=== PATIENT | male | born 1960 | race Caucasian/White ===

== ENCOUNTER 2024-10-15 01:03 | Day surgery (SDC) | payer MEDICARE, OTHER, SELFPAY ==
[2024-10-07 11:18] VITALS: BMI 36.8
[2024-10-15 07:20] VITALS: BP 155/88; PULSE 64; RESP 18; TEMP 36.1; O2SAT 99; BMI 36.2
--- NOTE | 2024-10-15 07:25 | WPDANESEPPF ---
Anes - Initial Pre Proc Eval Procedure: Operation Date: 10/15/24 08:30 Proposed Procedures p Screening Colonoscopy - Yazan Suárez DO Date/Time: 10/15/24 07:25 Surgeon: Yazan Suárez DO Pre Op Diagnosis: Screening for malignant neoplasm of colon Patient Data Age: 64 Gender: M Height: 1.83 m Weight: 121.3 kg Last Vital Signs Temp 36.1 C L 10/15/24 07:20 Pulse 64 10/15/24 07:20 Resp 18 10/15/24 07:20 BP 155/88 H 10/15/24 07:20 Pulse Ox 99 10/15/24 07:20 O2 Del Method Room Air 10/15/24 07:20 Allergies Allergy/AdvReac Type Severity Reaction Status Date / Time No Known Allergies Allergy Verified 10/15/24 07:19 Home Medications ?Medication ?Instructions ?Recorded ?Confirmed ?Type amlodipine 5 mg tablet (Norvasc) 5 mg PO DAILY 09/18/24 10/15/24 History hydrochlorothiazide 12.5 mg capsule 12.5 mg PO DAILY 09/18/24 10/15/24 History inclisiran 284 mg/1.5 mL 284 mg subcut [id number] 09/18/24 10/07/24 History subcutaneous syringe (Leqvio) fluticasone propionate 50 1 spray intranasal DAILY 09/27/24 10/15/24 History mcg/actuation nasal spray,suspension (Flonase Allergy Relief) Patient hx anesthesia problems: none Family hx anesthesia problems: none Results Review: All pre-operative results and documents have been reviewed as part of the pre-operative evaluation. [facility] Past Medical History Medical History (Updated 10/15/24 @ 07:25 by Ortiz Feliz MD) Benign prostatic hyperplasia (BPH) with post-void dribbling Surgical History Surgical History H/O sinus surgery Family History Family History Father , 56 Acute myocardial infarction Cerebrovascular accident Tobacco abuse Mother Heart disease Sibling No problems noted. 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 Informed Consent: The patient's anesthetic plan and its attendant risks and benefits were discussed with the patient/family/POA. Questions were solicited and answers provided to the satisfaction of the patient/family/POA.
[2024-10-15] MEDS: LACTATED RINGERS 1,000 ML 150 ML IV CONT (07:33)
--- NOTE | 2024-10-15 08:33 | PM.IMHP ---
H&P: HPI History of Present Illness Date/Time: 10/15/24 08:33 Chief Complaint: Screening for CRC Narrative: 64 yo man presents for colonoscopy. Last colonoscopy was 10 years ago and was normal. Denies hematochezia or melena. Has fam hx of colon polyps in his mother. Review of Systems Review of Systems: All systems reviewed & are unremarkable except as noted in HPI and below Constitutional: Constitutional: Denies chills, Denies fever(s), Denies headache(s) and Denies weight loss Eyes: Eyes: Denies change in vision ENT: Denies dizziness, Denies headache(s), Denies neck mass and Denies throat swelling Cardiovascular: Cardiovascular: Denies chest pain, Denies lightheadedness and Denies dyspnea Respiratory: Respiratory: Denies cough, Denies dyspnea and Denies wheezing Gastrointestinal: Gastrointestinal: Denies abdominal pain, Denies change in bowel habits, Denies nausea and Denies vomiting Genitourinary: Genitourinary: Denies hematuria and Denies dysuria Musculoskeletal: Musculoskeletal: Reports as per HPI Integumentary/Breasts: Skin/Breast: Reports as per HPI Neurologic: Denies dizziness and Denies headache(s) Allergic/Immunologic: Allergic/Immunologic: Denies throat swelling and Denies wheezing [facility] [place] Past Medical History Medical History (Updated 10/15/24 @ 08:35 by Yazan Suárez DO) Benign prostatic hyperplasia (BPH) with post-void dribbling Surgical History Surgical History H/O sinus surgery Family History Family History Father , 56 Acute myocardial infarction Cerebrovascular accident Tobacco abuse Mother Heart disease Sibling No problems noted. 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[employer] Gender identity (if verbalized by the patient): Male Spiritual care concerns: No Meds Home Medications and Allergies Home Medications ?Medication ?Instructions ?Recorded ?Confirmed ?Type amlodipine 5 mg tablet (Norvasc) 5 mg PO DAILY 09/18/24 10/15/24 History hydrochlorothiazide 12.5 mg capsule 12.5 mg PO DAILY 09/18/24 10/15/24 History inclisiran 284 mg/1.5 mL 284 mg subcut [id number] 09/18/24 10/07/24 History subcutaneous syringe (Leqvio) fluticasone propionate 50 1 spray intranasal DAILY 09/27/24 10/15/24 History mcg/actuation nasal spray,suspension (Flonase Allergy Relief) Allergies Allergy/AdvReac Type Severity Reaction Status Date / Time No Known Allergies Allergy Verified 10/15/24 07:19 Vital Signs Vital Signs - 24 hr 10/15/24 07:20 Temperature 97 F L Pulse Rate 64 Respiratory Rate 18 Blood Pressure 155/88 H Pulse Oximetry 99 Oxygen Delivery Room Air Exam Const: General: no acute distress and alert Orientation/consciousness: patient oriented x3 HENMT: Head: normocephalic and atraumatic Ears: hearing grossly normal bilaterally Face/Nose/Sinus: Normal nares present Mouth: Yes Normal oral and palatal mucosa present Eyes: Periorbital: periorbital findings normal Sclera: sclerae normal EOM: EOMs intact bilaterally Neck: Neck: normal visual inspection, no lymphadenopathy and trachea midline Chest: Chest palpation & inspection: normal inspection of the chest Resp: Effort & Inspection: normal respiratory effort Auscultation: clear to auscultation bilaterally Cardio: Jugular venous distension: no JVD Rate: regular rate Rhythm: regular rhythm Heart sounds: S1 normal heart sound present and S2 normal heart sound present Peripheral pulses: Peripheral pulses 2+ throughout GI: Inspection: normal to inspection GI Palp: Yes Soft to palpation, No Tenderness to palpation present (GI), No Guarding due to palpation present (GI) and No Rebound tenderness present Percussion: Yes normal to percussion Auscultation: normal bowel sounds : General: Yes no CVA tenderness Back/Spine/Pelvis: Back: no CVA tenderness Neuro: General: patient oriented x3, no focal motor deficits and CN's II-XI intact bilaterally Cognition (Neuro): normal cognition Speech: normal speech Motor exam (neuro): 5/5 motor strength present throughout Extrem: General: capillary refill normal and no clubbing, cyanosis or edema Assessment and Plan Assessment and plan (1) Screening for colorectal cancer: Code(s): Z12.11 - Encounter for screening for malignant neoplasm of colon; Z12.12 - Encounter for screening for malignant neoplasm of rectum Status: Acute Assessment and Plan: I have recommended colonoscopy. I have discussed the procedure, risks, benefits, and alternatives. Questions were answered. Patient is agreeable to proceed.
[2024-10-15 08:59] VITALS: BP 108/77; PULSE 64; RESP 17; O2SAT 98
[2024-10-15 09:09] VITALS: BP 118/78; PULSE 60; RESP 17; O2SAT 98
[2024-10-15 09:19] VITALS: BP 125/83; PULSE 62; RESP 20; O2SAT 98
== END 2024-10-15 09:31 | disposition home or self-care (01) ==
PROVIDERS: PCP Internal Medicine; Visit Provider Surgery
PROC: 0DJD8ZZ Inspection of Lower Intestinal Tract, Via Natural or Artificial Opening Endoscopic (ICD-10-PCS; CPT 45378; principal; 2024-10-15 08:30)
DX: Z12.11 Encounter for screening for malignant neoplasm of colon (principal); K57.30 Diverticulosis of large intestine without perforation or abscess without bleeding; N40.1 Benign prostatic hyperplasia with lower urinary tract symptoms; E66.9 Obesity, unspecified; Z68.36 Body mass index [BMI] 36.0-36.9, adult; Z98.890 Other specified postprocedural states; Z83.719 Family history of colon polyps, unspecified; Z82.49 Family history of ischemic heart disease and other diseases of the circulatory system
CPT/HCPCS: G0105; J2003; J2704; J7120

== ENCOUNTER 2025-01-10 07:49 | Outpatient (CLI) | payer MEDICARE, OTHER, SELFPAY ==
--- NOTE | ~2025-01-10 | US_ITS ---
EXAMINATION: US aorta DATE: 01/10/2025 13:48 CDT INDICATION: Family history of ischemic heart disease and aortic aneurysm TECHNIQUE: Grayscale, color Doppler, and pulsed Doppler images of the aorta and common iliac arteries were obtained. COMPARISON: None. FINDINGS: The proximal aorta measures 2.5 x 2.9 cm The mid aorta measures 2.8 x 2.8 cm The distal aorta measures 2.2 x 2.5 cm The right common internal iliac artery measures 1.6 x 1.5cm. The left common iliac artery measures 1.8 x 1.9 cm. IMPRESSION: 1. No aneurysmal dilatation of the abdominal aorta or bilateral common iliac arteries, as detailed ab ove. Reviewed, dictated and finalized at location A. IMPRESSION: 1. No aneurysmal dilatation of the abdominal aorta or bilateral common iliac ar teries, as detailed above.
--- OUTSIDE RECORDS SUMMARY | 2025-01-10 07:51 | XMS_ITS | Encounter Summary ---
Author Organization [facility] Healthcare Address [address] [place] [id number] Care Team Providers Care Agricultural Engineering Technician Name Role Phone Joe Barnes DO Primary Care Provider Mehul Paula DO Primary Care Provider Encounter Details Date Type Department Care Team (Late st Contact Info) Description 06/03/2024 Telephone [facility] Cardiac Adjunct English Instructor [address] [place] [address] Rasta Bullock MD [address] [place] [address] [address] Social History Tobacco Use Types Packs/Day Years Used Date Smoking Tobacco: Never Smokeless Tobacco: Never Personal Safety Answer Date Recorded Have you ever been in or are you currently in a harmful physical or emotional relationship or is someone making you feel afraid or unsafe? 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
--- OUTSIDE RECORDS SUMMARY | 2025-01-10 07:51 | XMS_ITS | Encounter Summary ---
Author Organization [facility] Healthcare Address [address] [place] [id number] Care Team Providers Care Survey Rodman Name Role Phone Joe Barnes DO Primary Care Provider [phone] Mehul Paula DO Primary Care Provider Encounter Details Date Type Department Care Team (Late st Contact Info) Description 04/30/[address] [facility] Cardiac Client Support Consultant [address] [place] [address] Rasta Bullock MD [address] [place] [address] [address] Social History Tobacco Use Types Packs/Day Years Used Date Smoking Tobacco: Never Smokeless Tobacco: Never Personal Safety Answer Date Recorded Getting School Help Needed Not on file 08/05 Sex and Gender Information Value Date Recorded Sex Assigned at Not on file Legal Sex Male 7:16 AM CRITICAL CARE NURSE PRACTITIONER Gender Identity Male 07/31/2024 12:37 PM CRITICAL CARE NURSE PRACTITIONER Sexual Orientation Not on file documented as of this encounter Plan of Treatment Not on file documented as of this encounter Visit Diagnoses Not on filedocumented in this encounter Care Teams Survey Rodman Relationship Specialty Start Date End Date Joe Barnes DO PCP - General Family Medicine 04/22/22 10/02/24 Mehul Paula DO [address] [place] [id number] PCP - General Internal Medicine 10/03/24 documented as of this encounter
--- OUTSIDE RECORDS SUMMARY | 2025-01-10 07:52 | XMS_ITS | Clinical Summary ---
Author Organization [facility] Address [address] [place] [address] Care Team Providers Care Molder Offbearer Name Role Phone Mehul Paula DO Primary Care Provider Allergies Active Allergy Reactions Criticality Noted Date Comments [place]-Vaf-Tpy Reductase Inhibitors Joint pain Low 08/09/2024 Medications amLODIPine (NORVASC) 5 mg tablet Take 1 tablet (5 mg total) by mouth daily 0 Active hydroCHLOROthi azide (MICROZIDE) 12.5 mg capsule 2 Active fluticasone propionate (FLONASE) 50 mcg/actuation nasal sprayIndicatio ns:Dysfunction of both eustachian tubes Administer 2 sprays into each nostril daily 1 each 3 4 Active inclisiran (LEQVIO) 284 mg/1.5 mL syringe Inject under the skin once Active oxyCODONE-acet aminophen (PERCOCET) 5-325 mg per tablet 4 12/17/19 25 Discontinu ed(Therapy completed) simethicone (MYLICON) 80 mg chewable tablet 3 tablets (240 mg total) 5 12/17/19 25 Discontinu ed(Therapy completed) Active Problems Problem Noted Date Diagnosed Date Impacted cerumen of left ear 10/30/2024 Assessment & Plan (10/30/2024 8:21 PM CDT): He did have some wax impacted up against the drum on the left side. That was removed using suction. It could be causing the occasional popping in his left ear. Otherwise I do not find any other problems. He understands. He will follow up if his symptoms worsen. Scalp lesion 10/30/2024 Assessment & Plan (10/30/2024 8:23 PM CDT): He has some slight scaly areas along the right posterior scalp. I do not feel anything such as a subcutaneous lymph node. The scalp lesions involve the skin and appear benign. Could be eczema. I recommended that he continue with his current shampoo. He could consider seeing a clearing tub worker for further evaluation. He understands. Chronic pansinusitis 10/04/2024 Assessment & Plan (10/30/2024 8:20 PM CDT): He had a sinus CT scan done today and I reviewed this with him. It generally shows no significant evidence of sinusitis. Evidence of prior surgery but everything is clear. I recommended no further intervention and he is fine with that. Assessment & Plan (10/04/2024 12:42 PM GOLF CLUB WEIGHTER): He continues to have a lot of underlying sinusitis symptoms and I am recommending that we continue with treatment. I would like to switch his antibiotics however. Going to have him discontinue the doxycycline. I am going to also place him on Ceftin 500 mg twice a day for 2 weeks. Also we would like to have him take another course of steroids even though he just finished that. It is going to be a short course of prednisone. I am also planning on having him follow-up and we will check a sinus CT scan at that time. He will see me in about 4 weeks. Right chronic serous otitis media 10/04/2024 Assessment & Plan (10/30/2024 8:21 PM CDT): His ear feels much better. Feels like he is hearing better. I am recommending no further intervention. Continue with his hearing aid use. Assessment & Plan (10/04/2024 12:43 PM GOLF CLUB WEIGHTER): He has a middle ear effusion on the right side which is affecting his hearing. I recommended a myringotomy. Also talked with him about placing a tube but we will see how things go and resort to that if he develops a middle ear effusion again. He understands. Myringotomy was done today. He noted significant improvement in his hearing. Cervical lymphadenitis 10/04/2024 Assessment & Plan (10/04/2024 12:48 PM GOLF CLUB WEIGHTER): He has what appears to be a small palpable lymph node in the right occipital area. Non pathologic. I am recommending taking a wait and see approach on that. He will let me know if things change significantly. Tinnitus of both ears 08/09/2024 Aortic valve disease 07/25/2024 Other hyperlipidemia 07/25/2024 Family history of ischemic heart disease 024 Nonrheumatic aortic (valve) stenosis 06/06/2024 Sensorineural hearing loss (SNHL) of both ears 1 09/27/2021 Assessment & Plan (10/04/2024 12:41 PM GOLF CLUB WEIGHTER): This appears to be pretty stable when comparing his most recent audiograms. There has a little bit of test variability however. Assessment & Plan (07/31/2022 4:05 PM GOLF CLUB WEIGHTER): I reviewed his hearing test and it shows a mixed loss which is mostly sensorineural. I do think that the conductive component is probably due to middle ear fluid or pressure. We talked about that. I recommended a myringotomy on both sides and he indicated that he would like to pursue that. He has had this done in the past with success. Dysfunction of both eustachian tubes 07/27/2022 Assessment & Plan (09/07/2022 6:32 PM GOLF CLUB WEIGHTER): His ears both look much better. Tympanic membranes are essentially normal. At this point I do not think there is any need for further intervention. I told him that this problem could recur and if so he can always follow-up with me. He understands and is agreeable with that approach. Assessment & Plan (07/27/2022 9:12 AM GOLF CLUB WEIGHTER): I did myringotomies bilaterally and he tolerated that well. Small amount of fluid noted on the right side but the left side was pretty clear. Did note some improvement right away. I recommended keeping his ears dry. I am going to prescribe a steroid pack and follow-up with him in about 6 weeks. Adrenal adenoma, right 09/26/2019 Assessment & Plan (04/27/2023 8:57 AM CDT): 1.8 cm right adrenal nodule detected onCT scan on 07/08/19 [address]able in size on CT scan on 05/23/20 No clinical signs of adrenal dysfunction Work up showed normal urine free cortisol and serum metanephrines in . had normal 1 mg Dexamethasone suppression test on 04/27/21 Normal electrolytes with GFR of 76 on 04/14/22 Plan: We will check 1 mg Dexamethasone suppression test If test is normal then no follow up for adrenal gland is needed. Assessment & Plan (04/27/2022 8:58 AM CDT): 1.8 cm right adrenal nodule detected onCT scan on 07/08/19 [address]able in size on CT scan on 05/23/20 No clinical signs of adrenal dysfunction Work up showed normal urine free cortisol and serum metanephrines in . had normal 1 mg Dexamethasone suppression test on 04/27/21 Normal electrolytes with GFR of 76 on 04/14/22 Plan: We will continue to monitor for adrenal dysfunction Check again in 1 year. Assessment & Plan (04/23/2021 8:49 AM CDT): 1.8 cm right adrenal nodule detected onCT scan on 07/08/19 [address]able in size on CT scan on 05/23/20 No clinical signs of adrenal dysfunction Labs from 2019 showing sodium 140, potassium of 4.3 Cr 1.6 and GFR 41 Calcium 9.0 Work up showed normal urine free cortisol and serum metanephrines in . Plan: We will continue to screen for adrenal dysfunction Check 1 mg Dexamethasone suppression test Check BMP Assessment & Plan (04/14/2020 5:04 PM CDT): 59 years old male, with history of controlled hypertension CT scan on 07/08/19 1.8 cm right adrenal nodule with features suggesting adenoma No clinical signs of adrenal dysfunction Labs from 2019 showing sodium 140, potassium of 4.3 Cr 1.6 and GFR 41 Calcium 9.0 Work up showed normal urine free cortisol and serum metanephrines in . Plan: The diagnosis reviewed with patient We will check BMP Check CT of the adrenal gland to insure stability. Essential hypertension 09/26/2019 Assessment & Plan (04/27/2023 8:56 AM CDT): Controlled with medication - low salt diet - continue medication per PCP Assessment & Plan (04/27/2022 8:56 AM CDT): Controlled with medication - low salt diet - continue medication per PCP Assessment & Plan (04/23/2021 8:50 AM CDT): Controlled with medication - low salt diet - continue medication per PCP Assessment & Plan (04/14/2020 5:06 PM CDT): Controlled with medications Patient reports nocturia not responding to Flomax - nocturia not related to adrenal issue. - check with PCP, he may need evaluation by urology. Encounters Date Type Department Care Team Description 12/16/2024 1:11 PM CDT - 12/16/2024 11:59 PM CDT Hospital Encounter [facility] [address] [place] [address] Family history of ischemic heart disease (Primary Dx); Other hyperlipidemia; Aortic valve disease Discharge Disposition: Discharge to home or self care 10/30/2024 3:00 PM CDT Office Visit [facility] [address] [place] [phone] Adonis Milan MD Chronic pansinusitis (Primary Dx); Right chronic serous otitis media; Impacted cerumen of left ear; Scalp lesion 10/30/2024 Imaging Exam [facility] [address] [place] [phone] Adonis Milan MD Chronic pansinusitis (Primary Dx) from Last 3 Months Surgical History Surgery Date Site/Laterality Comments PROSTATE SURGERY SINUS SURGERY CATARACT EXTRACTION MYRINGOTOMY 07/27/2022 Bilateral MYRINGOTOMY 10/03/2024 Right Medical History Medical History Date Comments Enlarged prostate Hypertension Ear problems HL (hearing loss) Other hyperlipidemia 07/25/2024 Family history of ischemic heart disease 024 Tinnitus Neck mass Bump behind righ t ear Sinusitis Family History Medical History Relation Name Comments Stroke Father No Known Problems Mother Relation Name Status Comments Father Mother Alive Social History Tobacco Use Types Packs/Day Years Used Date Smoking Tobacco: Never Smokeless Tobacco: Never Tobacco Cessation:Counseling Given: Not Answered Personal Safety Answer Date Recorded Have you ever been in or are you currently in a harmful physical or emotional relationship or is someone making you feel afraid or unsafe? Denies 06/06/2024 Sex and Gender Information Value Date Recorded Sex Assigned at Not on file Legal Sex Male 7:16 AM GOLF CLUB WEIGHTER Gender Identity Male 07/31/2024 12:37 PM GOLF CLUB WEIGHTER Sexual Orientation Not on file Obstetrics History Last Filed Vital Signs Vital Sign Reading Time Taken Comments Blood Pressure 140/87 12/16/2024 1:15 PM CDT Pulse 71 12/16/2024 1:15 PM CDT Temperature 36.6 C (97.8 F) 12/16/2024 1:15 PM CDT Respiratory Rate 18 12/16/2024 1:15 PM CDT Oxygen Saturation 100% 12/16/2024 1:15 PM CDT Inhaled Oxygen Concentration - - Weight 122.5 kg (270 lb) 10/30/2024 3:11 PM CDT Height 185.4 cm (6' 1) 10/30/2024 3:11 PM CDT Body Mass Index 35.62 10/30/2024 3:11 PM CDT Plan of Treatment Health Maintenance Due Date Last Done Comments Colon Cancer Screening-Colonoscopy 1959 Depression Screening 1959 Hepatitis C Screening 1959 Prostate Cancer Screening-PSA 1959 Hepatitis B Screening 1977 Pneumococcal vaccine 65+ (1 of 1 - PCV) 2009 Zoster Vaccine (2 of 2) 02/15/2022 12/21/2021 Covid-19 Vaccine (3 - 2023-2 5 season) 2024 10/19/2020, 09/22/2020 Well Visit 65+ 2024 Influenza Vaccine (Season Ended) 2025 06/09/2020, 06/10/2019, 06/10/2019, Additional history exists Fall Risk Assessment 06/06/2025 06/06/2024 DTaP/Tdap/Td Vaccine (2 - Td or Tdap) 12/22/2031 12/21/2021, 06/19/2003, 01/02/1997 Insurance MEDICARE [employer] [facility] MEDICARE FOR LIFE Care Teams Molder Offbearer Relationship Specialty Start Date End Date Mehul Paula DO [address] [facility] [address] [place] [address] PCP - General Internal Medicine 10/03/24
--- OUTSIDE RECORDS SUMMARY | 2025-01-10 07:52 | XMS_ITS | Referral Summary ---
Author Organization [facility] Medical Office Building B Address [address] [place] [address] Care Team Providers Care Health Information Manager Name Role Phone Mehul Paula DO Primary Care Provider [phone] Encounters Date Type Department Care Team Description 12/16/2024 1:11 PM CDT - 12/16/2024 11:59 PM CDT Hospital Encounter [facility] [address] [place] [address] Family history of ischemic heart disease (Primary Dx); Other hyperlipidemia; Aortic valve disease Discharge Disposition: Discharge to home or self care 10/30/2024 Imaging Exam [facility] Otolaryngology [address] [place] [phone] Adonis Milan MD Chronic pansinusitis (Primary Dx) 10/30/2024 3:00 PM CDT Office Visit [facility] Otolaryngology [address] [place] [phone] Adonis Milan MD Chronic pansinusitis (Primary Dx); Right chronic serous otitis media; Impacted cerumen of left ear; Scalp lesion from Last 3 Months Allergies Active Allergy Reactions Criticality Noted Date Comments Uxuzkub-Evt-Yjy Reductase Inhibitors Joint pain Low 08/09/2024 Medications [...] current shampoo. He could consider seeing a transplant immunologist for further evaluation. He understands. Chronic pansinusitis 10/04/2024 Assessment & Plan (10/30/2024 8:20 PM CDT): He had a sinus CT scan done today and I reviewed this with him. It generally shows no significant evidence of sinusitis. Evidence of prior surgery but everything is clear. I recommended no further intervention and he is fine with that. Assessment & Plan (10/04/2024 12:42 PM MARBLE CUTTER OPERATOR): He continues to have a lot of [...] use. Assessment & Plan (10/04/2024 12:43 PM MARBLE CUTTER OPERATOR): He has a middle ear effusion on [...] 10/04/2024 Assessment & Plan (10/04/2024 12:48 PM MARBLE CUTTER OPERATOR): He has what appears to be a [...] 09/27/2021 Assessment & Plan (10/04/2024 12:41 PM MARBLE CUTTER OPERATOR): This appears to be pretty stable when comparing his most recent audiograms. There has a little bit of test variability however. Assessment & Plan (07/31/2022 4:05 PM MARBLE CUTTER OPERATOR): I reviewed his hearing test and it [...] 07/27/2022 Assessment & Plan (09/07/2022 6:32 PM MARBLE CUTTER OPERATOR): His ears both look much better. Tympanic membranes are essentially normal. At this point I do not think there is any need for further intervention. I told him that this problem could recur and if so he can always follow-up with me. He understands and is agreeable with that approach. Assessment & Plan (07/27/2022 9:12 AM MARBLE CUTTER OPERATOR): I did myringotomies bilaterally and he tolerated [...] PCP, he may need evaluation by urology. Social History Tobacco Use Types Packs/Day Years [...] on file Legal Sex Male 7:16 AM MARBLE CUTTER OPERATOR Gender Identity Male 07/31/2024 12:37 PM MARBLE CUTTER OPERATOR Sexual Orientation Not on file Last Filed Vital Signs Vital Sign Reading [...] 10/30/2024 3:11 PM CDT Plan of Treatment [place] [address] MEDICARE [employer] MED[employer] FOR LIFE Care Teams Health Information Manager Relationship Specialty Start Date End Date Mehul Paula DO [address] [facility] [address] [place], [place] [phone] PCP - General Internal Medicine 10/03/24
--- OUTSIDE RECORDS SUMMARY | 2025-01-10 07:52 | XMS_ITS | Data Portability ---
Author Organization [place] - [facility] OFFICE Address [address] [place] [address] Care Team Providers Care Gate Clerk Name Role Phone MIDWAY Primary Care Provider Assessment No assessment recorded. Plan of Treatment Reminders Order Date Submit Date Provider Last Modified By Organization Details Last Modified Time Details Appointments ESTABLISH ED PATIENT DETAILED 2024 10:00A M Joe Dunn i, MD Not available Not available Not available Lab None recorded. Referral None recorded. Procedures None recorded. Surgeries None recorded. Imaging electroca rdiogram 2023 024 [email or web address] Not available 03/27/2024 08:36:26 Medication Orders None recorded. Patient TargetsNo targets recorded. Patient InstructionsNo instructions recorded. Reason for Referral None Reported. Results Created Date Observation Date Name Description Value Unit Range Abnormal Flag Note LastModifiedBy Organization Detail LastModifiedTime 03/12/20 24 01/19/2024 nelli shannonsusi diogr am No observ ation record ed. [email or web address] Not Available 2023 17:56:58 03/12/20 24 01/19/2024 XR, chest , 1 view No observ ation record ed. [email or web address] Not Available 2023 15:46:21 03/26/20 24 03/19/2024 exerc ise stres s test No observ ation record ed. [email or web address] Not Available 2023 09:35:31 04/20/20 24 04/09/2024 US, echoc ardio gram No observ ation record ed. [email or web address] Not Available 2023 04:37:44 07/23/20 24 06/06/2024 US, echoc ardio gram No observ ation record ed. [email or web address] Not Available 2023 17:06:38 07/23/20 24 07/23/2024 nelli fischer diogr am No observ ation record ed. [email or web address] Not Available 2023 17:11:53 Result Notes Documentation Provider Name and Address Organization Details Recorded Time Lipid Panel, Blood : Kelly Fairbanks [facility], [facility] [place] 07/24/2024 15:52:28 Problems Name Problem SNOMED Code Status Onset Date Resolution Date Notes Provider Name and Address Organization Details Recorded Time Chest pain 71249216 Active 2023 [facility] 4 13:11:27 Essential hypertension 97637339 Active 2023 [facility] 4 04:31:00 Family history of coronary arterioscleros is 718351747 Active 2023 [facility] 4 04:31:51 Dyslipidemia 337559883 Active 2023 [facility] 4 04:32:01 Problem Notes None recorded. Procedures Surgical History Date Name Laterality Status Provider Name and Address Organization Details Recorded Time 0 Prostate Surgery completed Kathe Jasimne [facility] 03/12/2024 14:43:22 Imaging Results None recorded. Procedure Notes None recorded. Medical Equipment None Reported. Allergies No known drug allergies Medications Name Sig Start Date Stop Date Status Note LastModified by Organization Details LastModified Time penicillin V potassium 500 mg tablet 04/23 completed Not Available Not Available Not Available amlodipine 5 mg tablet TAKE 1 TABLET BY MOUTH DAILY active Not Available Not Available No t Available sulfamethoxa zole 800 mg-trimethop rim 160 mg tablet TAKE 1 TABLET BY MOUTH TWICE DAILY FOR 7 DAYS 03/12 completed Not Available Not Available Not Available oxycodone-ac etaminophen 5 mg-325 mg tablet TAKE 1 TABLET BY MOUTH EVERY 4 TO 6 HOURS NEEDED FOR PAIN 03/12 completed Not Available Not Available Not Available dexamethason e 1 mg tablet TAKE 1 TABLET BY MOUTH 11 PM THE NIGHT BEFORE LAB TEST 03/12 completed Not Available Not Available Not Available hydrochlorot hiazide 12.5 mg capsule TAKE 1 CAPSULE BY MOUTH DAILY active Not Available Not Available No t Available hydrochlorot hiazide 12.5 mg tablet 03/12 completed Not Available Not Available Not Available Vitals Date Recorded Body height Body mass index (BMI) Body weight Heart rate Oxygen saturation Oxygen saturation in Arterial blood by Pulse oximetry Systolic blood pressure Diastolic blood pressure Provider Name and Address Organization Details Last Updated DateTime 4 182.88 cm 36.9 kg/m2 808476. 56 g 75 /min 96 % 96 % 127 mm[Hg] 75 mm[Hg] Kathe Jasmine [facility] 4 14:48:07 Date Recorded Body height Body mass index (BMI) Body weight Heart rate Oxygen saturation Oxygen saturation in Arterial blood by Pulse oximetry Systolic blood pressure Diastolic blood pressure Provider Name and Address Organization Details Last Updated DateTime 4 182.88 cm 36.9 kg/m2 344572. 12 g 64 /min 97 % 97 % 126 mm[Hg] 81 mm[Hg] Kathe Jasmine [facility] 4 16:58:39 Date Recorded Body height Body mass index (BMI) Body weight Heart rate Oxygen saturation Oxygen saturation in Arterial blood by Pulse oximetry Systolic blood pressure Diastolic blood pressure Provider Name and Address Organization Details Last Updated DateTime 4 182.88 cm 37.8 kg/m2 884787. 12 g 80 /min 92 % 92 % 168 mm[Hg] 82 mm[Hg] Kathe Jasmine [facility] 4 14:21:58 Social History Question Answer Notes LastModified by Organizat ion Details LastModified Time Tobacco Smoking Status Never Smoker Kathe Jasmine [facility] 03/12/2024 14:45:04 What Is Your Relationship Status? esto Information not available 03/10/2024 Sex: Unknown Functional Status None recorded. Mental Status None recorded. Family History Nothing Reported Notes:heat attack -father st roke-aunts/grandmother Medical History Condition Response Hypertension Y Past Encounters Encounter ID Performer Location Encounter Start Date Encounter Closed Date Diagnosis/Indication Diagnosis SNOMED-CT Code Diagnosis ICD10 Code Diagnosis Note [id number] Joe Degroot MD [address] [place] [address] 03/12/2024 13:56:19 03/12/2024 15:22:39 Chest pain 52341543 R07.9 Treadmill Myoview Stress test, has high Caliente Risk score. Has Known CAD, or CAD risk equivalent . To look for any ischemia.O btain echo to evaluate for structural /functiona l disease. Essential hypertension 55420169 I10 Obtain echo to evaluate for structural /functiona l disease. Family his tory of coronary arteriosclerosis 173700661 Z82.49 Needs to keep LDL less than 70, and HDL more than 40. Dyslipidemia 354776980 E 78.5 Needs to keep LDL less than 70, and HDL more than 40Will get fasting lipids for follow up [id number] Joe Degroot MD [place] OFFICE [facility] [place] [id number] 04/23/2024 16:30:03 04/23/2024 17:25:41 Essential hypertension 39895796 I10 Now well controlled Family his tory of coronary arteriosclerosis 038592630 Z82.49 Needs to keep LDL less than 70, and HDL more than 40. Dyslipidemia 556222253 E 78.5 Needs to keep LDL less than 70, and HDL more than 40LDL 135 will consider Leqvio Aortic valve disorder 87 79333 I35.9 With suspected Vegetation , will arrange for HANG [id number] Joe Degroot MD [place] OFFICE [facility] [place] [address] 07/23/2024 14:06:14 07/23/2024 14:43:43 Essential hypertension 22181706 I10 Now well controlled Family his tory of coronary arteriosclerosis 738020029 Z82.49 Needs to keep LDL less than 70, and HDL more than 40. Dyslipidemia 192433211 E 78.5 Needs to keep LDL less than 70, and HDL more than 40LDL 135 will Leqvio Aortic valve disorder 87 85195 I35.9 With suspected Vegetation , HANG was negative Obstructiv e sleep apnea syndrome 16826826 G47.33 May need sleep study Health Concerns Section Related Observation LastModified by Organization Detai ls LastModified Time None Recorded Concern Status LastModified by Organization Details LastModified Time None Recorded Advance Directives Directive None Recorded Payers Insurance Date Sequence Insurance Name Policy Number Policy Wallace Covered Member ID Wallaec Member ID Guarantor Name 2024 2 [facility] () Ronal Orozco [id number] Ronal Orozco 07/22/2024 1 MEDICARE-IN (MEDICARE) Ronal Orozco [id number] Ronal Orozco 07/24/2024 2 FOR LIFE ( - MEDICARE SUPPLEMENT) Ronal Orozco [id number] Ronal Orozco Notes Date Note Type Note Provider Name and Address Organization Details Recorded Time 03/12/2024 text/html 03/12/24CC: Jerman kruse painRonal OROZCO is a 63 years-old white Male with h/o obstructive and irritative lower urinary tract symptoms was referred for cardiac evaluation due to chest pain. Has chest pain. Was sent to ER with chest pain, had negative labsDenies shortness of breath at rest. Has mild dyspnea on exertion.No orthopnea. No PNDs.Denies heart palpitations.Denies dizziness. Denies syncope or near syncope.No ankle or leg edema.No major bleeding events.No reported side effects from medications. Taking medications as prescribed with no missed doses.Denies snoring, daytime somnolence and AM headache. Kelly Fairbanks [facility] [place] 03/14/2024 08:12:17 04/23/2024 text/html 04/23/24CC : Car dia follow upRonal OROZCO is a 63 years-old white Male with h/o essential hypertension, dyslipidemia, family history of coronary arteriosclerosis , obstructive and irritative lower urinary tract symptoms is here for 1 month follow up with ECHO, Labs and stress test results. He was last seen in the clinic on 03/12/24, since then he He had Negative stress test on 03/19/24 with LVEF: 69%.He denies ER visits and hospitalizations since he was last seen. Today reports:no ccDenies chest pain.Denies shortness of breath at rest. Has mild dyspnea on exertion.No orthopnea. No PNDs.Denies heart palpitations.Denies dizziness. Denies syncope or near syncope.No ankle or leg edema.No major bleeding events.No reported side effects from medications. Taking medications as prescribed with no missed doses.Denies snoring, daytime somnolence and AM headache.*Last LDL was 135 done on 03/20/24.Pt dose not takes any statins. *Had ECHO on 04/09/24 showed LV chamber size is normal. LV wall thickness is mildly increased. The estimated left ventricle ejection fraction is 60-65% (normal). LV relaxation is impaired. The aortic valve is mildly calcified. There is physiologic aortic valve regurgitation. Degenerative aortic valve, cannot exclude vegetation/thrombus/ma ss. There is mild thickening of the mitral valve anterior leaflet. There is mild tricuspid regurgitation. Mild elevation of estimated RV systolic pressure. There is minimal pulmonic regurgitation. 03/21/24:Na 141,K 4.5,CL 101,CO2 26,GLU 104,BUN 19,Cr 1.07,AST 25,ALT 21,CK 301.03/21/24:TC 220,TG 210,HDL 48,LDL 135. *He had Negative stress test on 03/19/24 with LVEF: 69%. Joe Degroot MD [address] [place], [address], [facility] 04/23/2024 17:21:41 07/23/2024 text/html 07/23/24CC : Car dia follow upRonal OROZCO is a 64 years-old white Male with h/o essential hypertension, dyslipidemia, family history of coronary arteriosclerosis , obstructive and irritative lower urinary tract symptoms is here for 3 month follow up. He was last seen in the clinic on 04/23/24, since then he had HANG, was negativeHe denies ER visits and hospitalizations since he was last seen. Today reports:no ccDenies chest pain.Denies shortness of breath at rest. Has mild dyspnea on exertion.No orthopnea. No PNDs.Denies heart palpitations.Denies dizziness. Denies syncope or near syncope.No ankle or leg edema.No major bleeding events.No reported side effects from medications. Taking medications as prescribed with no missed doses.Denies snoring, daytime somnolence and AM headache.*Last LDL was 135 done on 03/20/24.Pt dose not takes any statins. Previously:*He had Negative stress test on 03/19/24 with LVEF: 69%. *Had ECHO on 04/09/24 showed LV chamber size is normal. LV wall thickness is mildly increased. The estimated left ventricle ejection fraction is 60-65% (normal). LV relaxation is impaired. The aortic valve is mildly calcified. There is physiologic aortic valve regurgitation. Degenerative aortic valve, cannot exclude vegetation/thrombus/ma ss. There is mild thickening of the mitral valve anterior leaflet. There is mild tricuspid regurgitation. Mild elevation of estimated RV systolic pressure. There is minimal pulmonic regurgitation. 03/21/24:Na 141,K 4.5,CL 101,CO2 26,GLU 104,BUN 19,Cr 1.07,AST 25,ALT 21,CK 301.03/21/24:TC 220,TG 210,HDL 48,LDL 135. *He had Negative stress test on 03/19/24 with LVEF: 69%. Joe Degroot MD [address] [place], [address], [facility] 07/23/2024 14:41:21
== END 2025-01-10 07:50 | disposition home or self-care (01) ==
PROVIDERS: PCP Internal Medicine; Visit Provider Internal Medicine
DX: Z87.891 Personal history of nicotine dependence (principal); Z82.49 Family history of ischemic heart disease and other diseases of the circulatory system
CPT/HCPCS: 76775